=== PATIENT | male | born 1985 | race Caucasian/White ===

== ENCOUNTER 2016-06-09 12:52 | Outpatient (CLI) | payer OTHER | END 2016-06-09 12:53 | disposition home or self-care (01) | DX: M25.561 Pain in right knee (principal); S83.281A Other tear of lateral meniscus, current injury, right knee, initial encounter; M23.021 Cystic meniscus, posterior horn of medial meniscus, right knee; M17.11 Unilateral primary osteoarthritis, right knee ==

== ENCOUNTER 2016-09-23 06:08 | Day surgery (SDC) | payer OTHER ==
[2016-09-23] MEDS ORDERED: ceFAZolin 2 GM/50 ML 50 ML IV ONE (06:24)
[2016-09-23] MEDS ORDERED: CELECOXIB 100 MG CAPSULE PO ONE (06:24)
[2016-09-23] MEDS ORDERED: ACETAMINOPHEN 1,000 MG/100 ML 100 ML IV ONE (06:24)
[2016-09-23] MEDS ORDERED: LACTATED RINGERS 1,000 ML IV ONE ×2 (06:35→09:32)
[2016-09-23] MEDS ORDERED: MORPHINE PF 5 MG/10 ML AMP SUBQ ONE ×2 (07:37→09:32)
[2016-09-23] MEDS ORDERED: ROPIVACAINE 0.2% PF 20 ML AMPULE SUBQ ONE ×2 (07:38→09:32)
[2016-09-23] MEDS ORDERED: BUPIVACAINE 0.5% PF 10 ML VIAL IU ONE ×2 (07:38→09:32)
[2016-09-23] MEDS ORDERED: MIDAZOLAM 2 MG/2 ML VIAL IVP ONE (08:10)
[2016-09-23] MEDS ORDERED: ONDANSETRON 4 MG/2 ML VIAL IVP ONE (08:10)
[2016-09-23] MEDS ORDERED: DEXAMETHASONE 4 MG/ML VIAL IVP ONE (08:10)
[2016-09-23] MEDS ORDERED: ACETAMINOPHEN 1,000 MG/100 ML VIAL IV ONE (08:10)
[2016-09-23] MEDS ORDERED: PROPOFOL 200 MG/20 ML VIAL IVP ONE (08:10)
[2016-09-23] MEDS ORDERED: LIDOCAINE-MPF 2% 5 ML VIAL IM ONE (08:10)
[2016-09-23] MEDS ORDERED: fentaNYL 100 MCG/2 ML VIAL IVP ONE (08:10)
[2016-09-23] MEDS ORDERED: GLYCOPYRROLATE 1 MG/5 ML VIAL IVP ONE (08:10)
[2016-09-23] MEDS ORDERED: MORPHINE PF 5 MG/10 ML AMP EP ONE (08:10)
[2016-09-23] MEDS ORDERED: KETOROLAC 30 MG/ML VIAL IVP ONE (08:10)
[2016-09-23 11:02] VITALS: BP 132/70
--- NOTE | 2016-09-26 08:01 | OPERATIVE REPORT ---
DATE OF SURGERY: 09/23/2016 00:00:00 ID#: [id number] PREOPERATIVE DIAGNOSIS: Right knee medial meniscus tear and meniscal cyst with possible lateral meniscus tear. 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 OPERATIVE PROCEDURE PERFORMED: Right knee arthroscopy with meniscal cyst decompression, posterior meniscal capsular repair, and chondroplasty to lateral femoral condyle and lateral tibial plateau. OPERATIVE SURGEON: Commander Tarik Fernandez, [facility] ANESTHESIA PROVIDER: Mikael Polanco CRNA ANESTHESIA TECHNIQUE: General anesthesia via LMA with local anesthesia. CIRCULATING RN: Abiodun Bella RN SCRUB TECHS: RODRIGO Urena; and Ms. Mayra Kaplan, LILLIAM START TIME: 0811 hours. END TIME: 0926 hours. INJECTED SUBSTANCES INCLUDE: Duramorph morphine 10 mg with 0.2% ropivacaine, 5 mL injected together intraarticular after closure of portal sites. Prior to incision the portal sites were injected with 0.5% Marcaine plain 10 mL. INTRAVENOUS FLUIDS: 1000 mL of Lactated Ringer's. PREOPERATIVE ANTIBIOTICS: Ancef 2 grams. ESTIMATED BLOOD LOSS: 5 mL. PREOPERATIVE PREP: Hibiclens followed by ChloraPrep applied to the exposed operative skin after draping. The patient had left lower extremity ALDEN hose and foot pumps in place and functioning prior to induction of anesthesia. COMPLICATIONS: None. TOURNIQUET TIME: None. 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 Patient was counseled, as far as the findings and options for operative versus nonoperative management including the risks, benefits, alternatives, and expectations to both operative and nonoperative management. The patient preferred to have surgery. He received command authorization for surgery, which was initially postponed due to a corneal abrasion and eye infection, which has subsequently resolved. On the day of surgery, the patient identified the operative site to be his right knee; it was initiated by the operative surgeon. He had removal of hair with clippers. He marked the area of his pain site with sterile skin marker. He was then taken back to the operating room and placed in a supine position and underwent general anesthesia via LMA. After anesthetic control, the patient 's bony prominences were well padded. He had a tourniquet applied to the right upper thigh. The right lower extremity then underwent examination under anesthesia, which revealed full passive range of motion, stable anterior and posterior drawer, stable Kellee's, negative pivot shift or glide, stable varus and valgus stress at 0 and 30 degrees. Following this, the right lower extremity underwent Hibiclens prep and standard sterile draping, followed by a surgical pause to confirm the proper patient, procedure, operative site, position, prophylactic antibiotics, surgical initials, and surgical instrumentation in accordance with the [place] Protocol Procedure Verification. Following this, additional ChloraPrep was applied to the exposed operative skin and allowed to dry for 3 minutes. His bony landmarks were then outlined with a skin marker. The portal sites were injected with 0.5% Marcaine plain, followed by a stab incision over the anterolateral knee and insertion of the arthroscope into the medial compartment due to difficulty entering the patellofemoral articulation. Under direct visualization and under valgus stress, a spinal needle was inserted to establish the location of the anteromedial portal, followed by a stab incision then a probe. Probing the medial meniscus showed no obvious sign of superior or undersurface meniscus tear. The knee was taken through a full range of motion; there was no gross medial femoral condyle nor medial tibial plateau chondromalacia. Partial ligamentum resection and fat pad resection was performed in order to enter the femoral notch. Probing visualization of the PCL and ACL showed no signs of tear or insufficiency. The lateral compartment was then entered under a figure-4 position, probing visualization of the lateral meniscus showed no sign of tear or instability. The knee was taken through a full range of motion, revealing an area of lateral tibial plateau and lateral femoral condyle grade 1-2 chondromalacia that underwent chondroplasty. Further fat pad and synovial resection was performed in order to enter the patellofemoral articulation, revealing a normal-appearing medial, central, and lateral patellar facet chondral surfaces, as well as a normal-appearing trochlear chondral surface. There was normal patellofemoral articulation and tracking. Following this, further evaluation of the posterior aspect of the medial meniscus and capsule was performed with visualization through the femoral notch , with an area that appeared to be the area of the parameniscal cyst. This underwent debridement with a sucker shaver. The meniscus was then further probed to confirm that there was no destabilization of the meniscus, and there was none. Following this, with visualization through the femoral notch, the repair of the posterior meniscal-capsule junction was performed using 2-0 PDS suture x1 at the area of the cyst decompression. The instruments were then removed from the patient's knee. The fluid was allowed to extravasate out. Arthroscopic photographs were taken throughout the case. The portals were then closed with 3-0 Monocryl. The knee was then injected with ropivacaine and Duramorph. The wounds were then covered with Mastisol, Steri-Strips, Xeroform, sterile plain gauze, sterile Webril, and an SHITAL bandage from mid foot to mid thigh, followed by a cold therapy cuff, and a range of motion brace locked in extension, with the hinge set at 0-90 degrees, with the instructions for the patient to remain in extension overnight and then begin 0 to 90 degrees as possible with nonweightbearing. The patient was extubated in the operating room and taken to the recovery room in stable condition. He tolerated the procedure well. The patient specifically requested that no family member nor command brand representative be contacted regarding the intraoperative findings, intraoperative procedures, nor postoperative instructions. He was briefed on the postoperative instructions himself in the holding area. I have given him my cell phone number so if he has any questions tonight or over the weekend, he may contact me. He will follow up with me on 09/26/2016, or sooner if worse. We will then put a physical therapy consult in for him to begin medial meniscus protocol. JOB #: [id number] EXT JOB #:[id number] SOURAV
== END 2016-09-23 06:09 | disposition home or self-care (01) ==
LOC: SDS 06:08
PROVIDERS: ATTEND Orthopaedic Surgery
PROC: 0SBC4ZZ Excision of Right Knee Joint, Percutaneous Endoscopic Approach (ICD-10-PCS; principal; 2016-09-23 07:30)
DX: M23.003 Cystic meniscus, unspecified medial meniscus, right knee (principal); M94.261 Chondromalacia, right knee
CPT/HCPCS: 29881; A9270; J0131; J0690; J7120

== ENCOUNTER 2018-02-06 12:53 | Emergency (ER) | payer OTHER ==
[2018-02-06 13:08] VITALS: BP 135/79
[2018-02-06] MEDS ORDERED: BUFFERED LIDOCAINE 10 ML SYRINGE SUBQ STA (14:24)
--- NOTE | 2018-02-06 14:25 | ED Physician Documentation ---
PD HPI UPPER EXT INJURY - Stated complaint Stated Complaint: HAND LAC - Chief complaint Chief Complaint: Wound - History obtained from History obtained from: Patient - History of Present Illness Location: Left (This is a right-handed gentleman who is active [employer], up-to-date on tetanus. He accidentally slipped with a screwdriver in his right hand and stabbed his left hand at work just prior to arrival.) Review of Systems Constitutional: reports: Reviewed and negative Throat: reports: Reviewed and negative Cardiac: reports: Reviewed and negative Respiratory: reports: Reviewed and negative PD PAST MEDICAL HISTORY - Past Medical History Cardiovascular: None Respiratory: None Endocrine/Autoimmune: None GI: None : None Psych: None Musculoskeletal: Other Derm: None - Past Surgical History Ortho: Other HEENT: Tonsil/Adenoidectomy - Present Medications Home Medications: Ambulatory Orders Medication Instructions Recorded Confirmed No Known Home Medications 02/06/18 02/06/18 - Allergies Allergies/Adverse Reactions: Allergies Allergy/AdvReac Type Severity Reaction Status Date / Time No Known Drug Allergies Allergy Verified 02/06/18 13:08 - Social History Does the pt smoke?: No Smoking Status: Never smoker Does the pt drink ETOH?: Yes Does the pt have substance abuse?: No - Immunizations Immunizations are current?: Yes PD ED PE NORMAL - Vitals Vital signs reviewed: Yes - General General: Alert and oriented X 3, No acute distress - Extremities Extremities: Other (There is a 1 cm puncture wound in the first webspace with mild tenderness around the MCP of the first digit of the left hand but good range of motion and normal capillary refill and neurovascular function.) - Neuro Neuro: Alert and oriented X 3, Normal speech Results - Vitals Vitals: Vital Signs - 24 hr 02/06/18 13:06 Temperature 36.8 C Heart Rate 66 Respiratory 18 Rate Blood Pressure 135/79 H O2 Saturation 99 Oxygen O2 Source Room air - Rads (name of study) L hand 3v Radiology: EMP read contemporaneously (normal) Procedures - Laceration (location) L hand Length in cm: 0.8 Wound type: Irregular Neurovascular status: Sensory intact, Motor intact Tendon involvement: Tendon intact Anesthesia: Lidocaine 1%, With bicarb Wound Preparation: Hibiclens, Irrigated copiously NS Skin layer closure: Nylon, Interrupted, Size #-0 - enter number (4-0), Sutures - enter # (2) Other: Tetanus UTD Complexity: Simple Departure - Departure Disposition: 01 Home, Self Care Clinical Impression: Laceration Condition: Good Record reviewed to determine appropriate education?: Yes Instructions: ED Laceration Hand Comments: Come back for any signs of infection which would include: Redness, swelling, drainage, increased pain, or fevers. Follow-up with your physician in 14 days for suture removal. Your blood pressure was elevated today on check into the emergency department. This does not mean that you have hypertension, it is a common phenomenon to come to the emergency department and have elevated blood pressure. I recommend that you see your primary care physician within the week to have it rechecked when you are feeling better.
--- NOTE | 2018-02-06 14:59 | XRAY Report ---
Reason: L hand inj, ok to walk Procedure Date: 02/06/2018 Accession Number: [id number] / [id number] Procedure: XR - Hand 3 View LT CPT Code: FULL RESULT: EXAM: LEFT HAND RADIOGRAPHY EXAM DATE: 02/06/2018 02:42 PM. CLINICAL HISTORY: Left hand injection, ok to walk. COMPARISON: None. TECHNIQUE: 3 views. FINDINGS: Bones: Normal. No fractures or bone lesions. Joints: Normal. No subluxations. Soft Tissues: No radiopaque foreign body is identified. The known laceration is not well seen. IMPRESSION: No radiopaque foreign body or fracture. RADIA
[2018-02-06] MEDS ORDERED: BACITRACIN OINT TOP ONE (15:14)
== END 2018-02-06 15:15 | disposition home or self-care (01) ==
LOC: ED 12:53
DX: S61.432A Puncture wound without foreign body of left hand, initial encounter (principal); W27.0XXA Contact with workbench tool, initial encounter; Y99.1 Military activity
CPT/HCPCS: 12001; 73130; 99282; A9270